=== PATIENT | male | born 1985 | race Caucasian/White ===

== ENCOUNTER → 2023-08-03 | Outpatient (CLI) | payer OTHER | LOC: LAB 09:26 → LAB SHORT 09:26 | DX: L02.611 Cutaneous abscess of right foot (principal) | CPT/HCPCS: 87070; 87075; 87205 ==

== ENCOUNTER 2024-06-14 17:01 | Emergency (ER) | payer BC ==
[~2024-06-14] VITALS: Ht 185.4 cm; Wt 145.2 kg
[~2024-06-14 17:01] MED LIST: ALBU90OI INH
[2024-06-14] MEDS ORDERED: Acetaminophen 500 MG Tab PO ONE (17:30)
[2024-06-14] MEDS ORDERED: Ipratropium/Albuterol SulF 2.5-0.5MG/3 ML Amp INH ONE (17:35)
[2024-06-14] MEDS ORDERED: NS 1,000 ML IV SCH (17:35)
[2024-06-14 17:46] LABS: BASOPHILS ABSOLUTE AUTO 0.02 K/mm3 (0.00-0.23); BASOPHILS PERCENT AUTO 0 % (0-2); EOSINOPHILS ABSOLUTE AUTO 0.06 K/mm3 (0.00-0.68); EOSINOPHILS PERCENT AUTO 1 % (0-6); Hematocrit 45.7 % (37.0-53.0); Hemoglobin 15.5 g/dL (13.5-17.5); IMMATURE GRAN ABSOLUTE AUTO 0.01 K/mm3 (0.00-0.10); IMMATURE GRAN PERCENT AUTO 0 % (0-1); LYMPHOCYTES PERCENT AUTO 20 % (21-46); MONOCYTES ABSOLUTE AUTO 0.28 K/mm3 (0.16-1.47); MONOCYTES PERCENT AUTO 6 % (4-13); Mean Corpuscular HGB Conc 33.9 g/dL (31.5-36.5); Mean Corpuscular Volume 83 fL (80-100); Mean Platelet Volume 9.4 fL (9.1-12.4); NEUTROPHILS ABSOLUTE AUTO 3.18 K/mm3 (1.96-9.15); NEUTROPHILS PERCENT AUTO 72 % (41-73); Platelet Count 256 K/mm3 (150-400); RDW Coefficient Variation 13.1 % (11.7-14.2); RDW Standard Deviation 39.4 fL (35.1-46.3); Red Blood Cell Count 5.53 M/mm3 (4.30-5.90); White Blood Cell Count 4.45 K/mm3 (4.00-11.30)
[2024-06-14 17:54] LABS: CORONAVIRUS COVID-19 AG Negative (NEGATIVE); INFLUENZA A AG Negative (NEGATIVE); INFLUENZA B AG Negative (NEGATIVE)
[2024-06-14 18:11] LABS: Bun/Creatinine Ratio 9.2 (12.0-20.0); Calcium, Blood 8.4 mg/dL (8.5-10.1); Creatinine, Blood 0.87 mg/dL (0.60-1.20); Potassium, Blood 3.6 mmol/L (3.5-5.5)
[2024-06-14] MEDS ORDERED: DOXY100 PO ×2 (19:12→19:28)
[2024-06-14] MEDS ORDERED: BENZ100A PO ×2 (19:12→19:28)
[2024-06-14] MEDS ORDERED: ALBU90OI INH ×2 (19:12→19:28)
[2024-06-14] MEDS ORDERED: PRED20 PO ×2 (19:15→19:28)
[2024-06-14] MEDS ORDERED: PredniSONE 20 MG Tab PO ONE (19:15)
[2024-06-14] MEDS ORDERED: Doxycycline Hyclate 100 MG TAB PO ONE (19:15)
== END 2024-06-14 19:33 | disposition home or self-care (01) ==
LOC: ER 17:01
PROVIDERS: Emergency Medicine
DX: J45.901 Unspecified asthma with (acute) exacerbation (principal); J06.9 Acute upper respiratory infection, unspecified; Z88.5 Allergy status to narcotic agent
CPT/HCPCS: 71046; 80048; 85025; 87428-QW; 94640; 94664; 96360; 99283-25; A9270; J7030; J7512